=== PATIENT | male | born 1965 | race Caucasian/White ===

== ENCOUNTER 2017-11-17 17:24 | Inpatient (IN) | payer BC ==
[2017-11-17 17:43] VITALS: BP 200/108; PULSE 114; RESP 22; TEMP 98; O2SAT 98
--- NOTE | 2017-11-17 18:32 | RADRPT ---
EXAM DATE/TIME: 11/17/2017 18:11 [facility] COMPARISON: No previous studies available for comparison. INDICATIONS : Dizziness. RADIATION DOSE: 39.45 CTDIvol (mGy) MEDICAL HISTORY : None SURGICAL HISTORY : None. ENCOUNTER: Initial ACUITY: 1 day PAIN SCALE: 0/10 LOCATION: cranial TECHNIQUE: Multiple contiguous axial images were obtained of the head. Using automated exposure control and adj ustment of the mA and/or kV according to patient size, radiation dose was kept as low as reasonably a chievable to obtain optimal diagnostic quality images. DICOM format image data is available electro nically for review and comparison. FINDINGS: CEREBRUM: The ventricles are normal for age. There are 2 focal hypodensities in the right mid convexityinvolvi ng the external limb of the right internal capsule and the medial striatum, characteristic of old lac unar infarcts. There is some ex vacuo enlargement of the right margin of the frontal horn. No evide nce of midline shift, mass lesion, hemorrhage or acute infarction. No extra-axial fluid collections are seen. POSTERIOR FOSSA: The cerebellum and brainstem are intact. The 4th ventricle is midline. The cerebellopontine angle i s unremarkable. EXTRACRANIAL: The visualized portion of the orbits is intact. Opacification of several ethmoid air cells, right gr eater than left. There is also opacification of the right and central frontal sinus. SKULL: The calvaria is intact. No evidence of skull fracture. CONCLUSION: 1. No acute findings in the brain. 2. Old lacunar infarcts right external capsule and right striatum. 3. Ethmoid and right frontal sinus disease. Guillermo Donato MD on November 17, 2017 at 18:29 Board Certified Radiologist. This report was verified electronically.
[2017-11-17 18:57] LABS: AUTOMATED NEUTROPHIL # 7.5 TH/MM3 (1.8-7.7); BASOPHIL # 0.1 TH/MM3 (0-0.2); BASOPHIL % 0.5 % (0.0-2.0); EOSINOPHIL # 0.7 TH/MM3 (0-0.4); EOSINOPHIL % 6.2 % (0.0-4.0); HEMOGLOBIN 14.2 GM/DL (13.0-17.0); LYMPH % 20.1 % (9.0-44.0); LYMPHOCYTE # 2.3 TH/MM3 (1.0-4.8); MEAN CELL VOLUME 97.9 FL (80.0-100.0); MEAN CORPUSCULAR HEMOGLOBIN 34.8 PG (27.0-34.0); MEAN CORPUSCULAR HGB CONC 35.5 % (32.0-36.0); MEAN PLATELET VOLUME 6.5 FL (7.0-11.0); MONO % 6.9 % (0.0-8.0); MONOCYTE # 0.8 TH/MM3 (0-0.9); NEUT % 66.3 % (16.0-70.0); PLATELET COUNT 240 TH/MM3 (150-450); RED BLOOD COUNT 4.08 MIL/MM3 (4.50-5.90); RED CELL DISTRIBUTION WIDTH 13.1 % (11.6-17.2); WHITE BLOOD COUNT 11.4 TH/MM3 (4.0-11.0)
[2017-11-17 19:03] VITALS: BP 182/98; PULSE 100; RESP 20; O2SAT 98
[2017-11-17] MEDS ORDERED: ASPI-183 PO (19:05)
[2017-11-17 19:12] LABS: ALBUMIN 4.3 GM/DL (3.4-5.0); AST (GOT) 21 U/L (15-37); BICARBONATE 27.5 MEQ/L (21.0-32.0); BLOOD UREA NITROGEN 14 MG/DL (7-18); CALCIUM 9.1 MG/DL (8.5-10.1); CHLORIDE 104 MEQ/L (98-107); CREATININE 1.52 MG/DL (0.60-1.30); GLOMERULAR FILTRATION RATE 48 ML/MIN (>89); GLUCOSE,RANDOM 85 MG/DL (74-106); MAGNESIUM 2.2 MG/DL (1.5-2.5); SODIUM (NA) 139 MEQ/L (136-145)
[2017-11-17 19:16] LABS: ALKALINE PHOSPHATASE 101 U/L (45-117); ALT (GPT) 34 U/L (12-78); TOTAL BILIRUBIN ADULT 0.4 MG/DL (0.2-1.0); TOTAL PROTEIN 7.5 GM/DL (6.4-8.2); TROPONIN I LESS THAN 0.02 NG/ML (0.02-0.05)
--- NOTE | 2017-11-17 19:18 | PD ---
HPI Chief Complaint: Dizziness Time Seen by Provider: 18:58 Travel History International Travel<30 days: No Contact w/Intl Traveler<30days: No Traveled to known affect area: No History of Present Illness HPI 52-year-old male visits to the ED for evaluation of dizziness. Sudden onset around 3pm. 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 He states that he felt as if he was off balance and had difficulties with ambulation. He went outside where it was cooler and sat down but his symptoms did not resolve. He had a friend drive him to the hospital. Symptoms are persistent on presentation. He denies dizziness, chest pain, palpitations, shortness of breath, unilateral weakness. He endorses history of daily aspirin use for back pain. He sees a doctor once a year. Denies family history of stroke. He is a nonsmoker. PFSH Past Medical History High Cholesterol: Yes Diminished Hearing: No Kidney Stones: Yes (1981) Tetanus Vaccination: Unknown Influenza Vaccination: No Past Surgical History Eye Surgery: Yes (cataracts) Social History Alcohol Use: No Tobacco Use: No Substance Use: No Allergies-Medications (Allergen,Severity, Reaction): Coded Allergies: No Known Allergies (Unverified , 11/17/17) Reported Meds & Prescriptions Reported Meds & Active Scripts Active Reported Aspirin 325 Mg Tab 325 Mg PO Q6H Review of Systems Except as stated in HPI: all other systems reviewed are Neg Physical Exam Narrative GENERAL: Well-nourished, well-developed white male in no acute distress. SKIN: Focused skin assessment warm/dry. HEAD: Normocephalic. EYES: No scleral icterus. No injection or drainage. NECK: Supple, trachea midline. No JVD or lymphadenopathy. CARDIOVASCULAR: Regular rate and rhythm without murmurs, gallops, or rubs. RESPIRATORY: Breath sounds equal bilaterally. No accessory muscle use. GASTROINTESTINAL: Abdomen soft, non-tender, nondistended. Active bowel sounds. MUSCULOSKELETAL: No cyanosis, or edema. NEUROLOGICAL: Awake and alert. The left side of the face appears flaccid when the patient is at rest, he makes a puffing breathing sound out of the left side of his mouth. However, on testing of the cranial facial nerves his smile is symmetric. Cranial nerves II through XII intact. Motor and sensory grossly within normal limits. Five out of 5 muscle strength in all muscle groups. Normal speech. BACK: Nontender without obvious deformity. No CVA tenderness. Data Data Last Documented VS Vital Signs Date Time Temp Pulse Resp B/P (MAP) Pulse Ox O2 Delivery O2 Flow Rate FiO2 11/17/17 19:06 100 20 98 Room Air 11/17/17 19:03 182/98 (126) 11/17/17 17:43 98.0 Orders Orders Electrocardiogram (11/17/17 17:46) Complete Blood Count With Diff (11/17/17 17:46) Comprehensive Metabolic Panel (11/17/17 17:46) Magnesium (Mg) (11/17/17 17:46) Ckmb (Isoenzyme) Profile (11/17/17 17:46) Troponin I (11/17/17 17:46) Ct Brain W/O Iv Contrast(Rout) (11/17/17 17:46) CKMB (11/17/17 18:10) CKMB% (11/17/17 18:10) Electrocardiogram (11/17/17 ) Mra Brain W/O Contrast (Cow) (11/17/17 ) Mra Carotids W Contrast (11/17/17 ) Mri Brain W/O Contrast (11/17/17 ) Clopidogrel (Plavix) (11/17/17 20:30) Orthostatic Blood Pressure (11/17/17 20:37) Admit Order (Ed Use Only) (11/17/17 20:38) Place In Observation (11/17/17 ) Vital Signs (Adult) Q2HX12,Q4H (11/17/17 20:37) Nih Stroke Scale - Nihss .Daily (11/17/17 20:37) Neuro Checks Q2HX12,Q4H (11/17/17 20:37) Notify Dr: Other (11/17/17 20:37) Ot Request For Service (11/17/17 20:37) Pt Request For Service (11/17/17 20:37) Speech Therapy Consult-Eval/Tx (11/17/17 20:37) Case Management Consult (11/17/17 ) Activity Oob Ad Carol Ann (11/17/17 20:37) Nursing Bedside Swallow Assess .ONCE (11/17/17 20:37) Scd Bilateral/Knee High NEIL.QSHIFT (11/17/17 20:37) Diet Npo (11/18/17 Breakfast) Complete Blood Count With Diff (11/18/17 06:00) Hemoglobin (Hgb) A1c (11/17/17 20:37) Basic Metabolic Panel (Bmp) (11/18/17 06:00) Lipid Profile (11/18/17 06:00) Echo 2d Comp With Doppler (11/17/17 ) ^ Hold Medication (11/17/17 20:37) Consult Neurology (11/17/17 ) Sodium Chloride 0.9% Flush (Ns Flush) (11/17/17 21:00) Sodium Chloride 0.9% Flush (Ns Flush) (11/17/17 20:45) Bedside Glucose NEIL.CSUGAR (11/17/17 20:37) ^ Discontinue Insulin Orders (11/17/17 20:37) Insulin Aspart Supplemtl Scale (Novolog (11/17/17 21:00) Dextrose 50% In Gerardo (Vial) Inj (D50w (Vi (11/17/17 20:45) Glucagon Inj (Glucagon Inj) (11/17/17 20:45) Journalism Teacher / Telemetry NEIL.Q8H (11/17/17 20:37) Consult Stroke Navigator (11/17/17 ) Labs Laboratory Tests Test 11/17/17 18:10 White Blood Count 11.4 TH/MM3 Red Blood Count 4.08 MIL/MM3 Hemoglobin 14.2 GM/DL Hematocrit 40.0 % Mean Corpuscular Volume 97.9 FL Mean Corpuscular Hemoglobin 34.8 PG Mean Corpuscular Hemoglobin Concent 35.5 % Red Cell Distribution Width 13.1 % Platelet Count 240 TH/MM3 Mean Platelet Volume 6.5 FL Neutrophils (%) (Auto) 66.3 % Lymphocytes (%) (Auto) 20.1 % Monocytes (%) (Auto) 6.9 % Eosinophils (%) (Auto) 6.2 % Basophils (%) (Auto) 0.5 % Neutrophils # (Auto) 7.5 TH/MM3 Lymphocytes # (Auto) 2.3 TH/MM3 Monocytes # (Auto) 0.8 TH/MM3 Eosinophils # (Auto) 0.7 TH/MM3 Basophils # (Auto) 0.1 TH/MM3 CBC Comment DIFF FINAL Differential Comment Blood Urea Nitrogen 14 MG/DL Creatinine 1.52 MG/DL Random Glucose 85 MG/DL Total Protein 7.5 GM/DL Albumin 4.3 GM/DL Calcium Level 9.1 MG/DL Magnesium Level 2.2 MG/DL Alkaline Phosphatase 101 U/L Aspartate Amino Transf (AST/SGOT) 21 U/L Alanine Aminotransferase (ALT/SGPT) 34 U/L Total Bilirubin 0.4 MG/DL Sodium Level 139 MEQ/L Potassium Level 3.8 MEQ/L Chloride Level 104 MEQ/L Carbon Dioxide Level 27.5 MEQ/L Anion Gap 8 MEQ/L Estimat Glomerular Filtration Rate 48 ML/MIN Total Creatine Kinase 142 U/L Creatine Kinase MB 1.1 NG/ML Troponin I LESS THAN 0.02 NG/ML MDM Medical Decision Making Medical Screen Exam Complete: Yes Emergency Medical Condition: Yes Differential Diagnosis TIA versus CVA versus metabolic derangement versus other Narrative Course 52-year-old male visits to the ED for evaluation of dizziness. Sudden onset around 3pm. 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 He states that he felt as if he was off balance and had difficulties with ambulation. Symptoms are persistent on presentation. He denies headache, CP, palpitations, SOB, unilateral weakness. He endorses history of daily aspirin use for back pain. He sees a doctor once a year. Denies family history of stroke. He is a nonsmoker. Pulse 114, BP 200 /108 on presentation. On recheck pulse 100, BP 182/98. O2 sats 98% on room air on presentation. On exam the patient has downward curving of the left side of the mouth with puffing type breathing at rest. He ate stroke scale 1. No other focal neuro deficits noted. Chest CTA B. Abdomen soft and nontender. No lower extremities edema. EKG: rate 88, sinus rhythm with occasional PVCs. MT interval 156, QRS 104, QTc 381. Normal axis. No acute ST changes. Reviewed by Dr. Kidd. Cardiac enzymes negative 1. CBC: WBC 11.4. Hemoglobin 14.2. CMP: BUN 14, currently 1.52. I spoke with Dr. Ram, on-call neurologist. He recommends placing the patient on 75 mg Plavix and 325 of aspirin daily, obtaining MRA/MRI of the brain and neck, admission with neuro consult. I spoke with the patient who is agreeable with this plan. I spoke to Dr. Goff who agrees to accept the patient to the medicine service. Please see neuro and medicine notes for disposition. Toya Odonnell Nov 17, 2017 19:18
[2017-11-17] MEDS ORDERED: CLOPIDOGREL 75 MG TAB PO ONE (20:30)
[2017-11-17] MEDS ORDERED: GADODIAMIDE PF 287 MG/ML 5 ML VIAL (for RAD MRI) IVCONTRAST ONE (20:40)
[2017-11-17] MEDS ORDERED: GLUCAGON 1 MG/ML VIAL OTHER PRN (20:45)
[2017-11-17] MEDS ORDERED: DEXTROSE 50% IN WATER 50 ML VIAL(D50) IV PUSH PRN (20:45)
[2017-11-17] MEDS ORDERED: SODIUM CHLORIDE 0.9% FLUSH 10 ML FLUSH IV FLUSH PRN (20:45)
[2017-11-17] MEDS: INSULIN ASPART SUPPLEMENTAL SCALE SQ SCH (21:00)
[2017-11-17] MEDS ORDERED: RESP: ALBUTEROL 2.5 MG/IPRATROPIUM 0.5 MG NEB (SCH) NEB ONE (21:00)
[2017-11-17] MEDS ORDERED: RESP: ALBUTEROL 2.5 MG/IPRATROPIUM 0.5 MG NEB (PRN) NEB (21:00)
--- NOTE | 2017-11-17 21:08 | HHI.HP ---
[facility] Physician Gino Christensen DO Admission Diagnosis TIA/CVA Diagnoses: Travel History International Travel<30 Days: No Contact w/Intl Traveler <30 Da: No Traveled to Known Affected Are: No History of Present Illness 52-year-old male with no significant past medical history presents to the emergency department with a chief complaint of dizziness. The patient reports he was at work earlier today when he stood up and immediately became dizzy. He reports the dizziness as a lightheadedness and denies that the room was spinning. He denies any loss of consciousness but states he did feel as though he was going to pass out and was able to catch himself before this occurred. The patient has a left-sided facial droop that he did not notice however is present on exam. The patient denies any chronicity of this droop. His breathing is also labored but the patient states this is his usual way of breathing as he is a mouth breather secondary to childhood asthma. Review of Systems Except as stated in HPI: all other systems reviewed are Neg Past Family Social History Past Medical History History of nephrolithiasis History of asthma in childhood Past Surgical History Bilateral cataract surgery Reported Medications Reported Meds & Active Scripts Active Reported Aspirin 325 Mg Tab 325 Mg PO Q6H Allergies: Coded Allergies: No Known Allergies (Unverified , 11/17/17) Family History Mother with diabetes mellitus Social History Negative for alcohol, tobacco and illicit drugs Physical Exam Vital Signs Vital Signs Date Time Temp Pulse Resp B/P (MAP) Pulse Ox O2 Delivery O2 Flow Rate FiO2 11/17/17 19:06 100 20 98 Room Air 11/17/17 19:03 100 20 182/98 (126) 98 Room Air 11/17/17 17:43 98.0 114 22 200/108 (138) 98 Physical Exam GENERAL: male sitting up in bed SKIN: No rashes, ecchymoses or lesions. Cool and dry. HEAD: Atraumatic. Normocephalic. No temporal or scalp tenderness. EYES: Pupils equal round and reactive. Extraocular motions intact. No scleral icterus. No injection or drainage. ENT: Nose without bleeding, purulent drainage or septal hematoma. Throat without erythema, tonsillar hypertrophy or exudate. Uvula midline. Airway patent. NECK: Trachea midline. No JVD or lymphadenopathy. Supple, nontender, no meningeal signs. CARDIOVASCULAR: Regular rate and rhythm without murmurs, gallops, or rubs. RESPIRATORY: Bilateral expiratory wheezes. Labored breathing through his mouth. GASTROINTESTINAL: Abdomen soft, non-tender, nondistended. No hepato-splenomegaly , or palpable masses. No guarding. MUSCULOSKELETAL: Extremities without clubbing, cyanosis, or edema. No joint tenderness, effusion, or edema noted. No calf tenderness. NEUROLOGICAL: Awake and alert. Left sided facial droop noted at the mouth at rest and with active smiling. Five out of 5 muscle strength in all her meaning muscle groups. Normal speech. Laboratory Laboratory Tests Test 11/17/17 18:10 White Blood Count 11.4 Red Blood Count 4.08 Hemoglobin 14.2 Hematocrit 40.0 Mean Corpuscular Volume 97.9 Mean Corpuscular Hemoglobin 34.8 Mean Corpuscular Hemoglobin Concent 35.5 Red Cell Distribution Width 13.1 Platelet Count 240 Mean Platelet Volume 6.5 Neutrophils (%) (Auto) 66.3 Lymphocytes (%) (Auto) 20.1 Monocytes (%) (Auto) 6.9 Eosinophils (%) (Auto) 6.2 Basophils (%) (Auto) 0.5 Neutrophils # (Auto) 7.5 Lymphocytes # (Auto) 2.3 Monocytes # (Auto) 0.8 Eosinophils # (Auto) 0.7 Basophils # (Auto) 0.1 CBC Comment DIFF FINAL Differential Comment Blood Urea Nitrogen 14 Creatinine 1.52 Random Glucose 85 Total Protein 7.5 Albumin 4.3 Calcium Level 9.1 Magnesium Level 2.2 Alkaline Phosphatase 101 Aspartate Amino Transf (AST/SGOT) 21 Alanine Aminotransferase (ALT/SGPT) 34 Total Bilirubin 0.4 Sodium Level 139 Potassium Level 3.8 Chloride Level 104 Carbon Dioxide Level 27.5 Anion Gap 8 Estimat Glomerular Filtration Rate 48 Total Creatine Kinase 142 Creatine Kinase MB 1.1 Troponin I LESS THAN 0.02 Result Diagram: 11/17/17 1810 11/17/171809 Caprini VTE Risk Assessment Caprini VTE Risk Assessment: No/Low Risk (score <= 1) Caprini Risk Assessment Model Point Value = 1 Point Value = 2 Point Value = 3 Point Value = 5 Age 41-60 Minor surgery BMI > 25 kg/m2 Swollen legs Varicose veins or History of unexplained or recurrent spontaneous Oral contraceptives or hormone replacement Sepsis (< 1 month) Serious lung disease, including pneumonia (< 1 month) Abnormal pulmonary function Acute myocardial infarction Congestive heart failure (< 1 month) History of inflammatory bowel disease Medical patient at bed rest Age 61-74 Arthroscopic surgery Major open surgery (> 45 min) Laparoscopic surgery (> 45 min) Malignancy Confined to bed (> 72 hours) Immobilizing plaster cast Central venous access Age >= 75 History of VTE Family history of VTE Factor V Leiden Prothrombin [id number] Lupus anticoagulant Anticardiolipin antibodies Elevated serum homocysteine Heparin-induced thrombocytopenia Other congenital or acquired thrombophilia Stroke (< 1 month) Elective arthroplasty Hip, pelvis, or leg fracture Acute spinal cord injury (< 1 month) Prophylaxis Regimen Total Risk Factor Score Risk Level Prophylaxis Regimen 0-1 Low Early ambulation 2 Moderate Order ONE of the following: *Sequential Compression Device (SCD) *Heparin 5000 units SQ BID 3-4 Higher Order ONE of the following medications: *Heparin 5000 units SQ TID *Enoxaparin/Lovenox 40 mg SQ daily (WT < 150 kg, CrCl > 30 mL/min) *Enoxaparin/Lovenox 30 mg SQ daily (WT < 150 kg, CrCl > 10-29 mL/min) *Enoxaparin/Lovenox 30 mg SQ BID (WT < 150 kg, CrCl > 30 mL/min) AND/OR *Sequential Compression Device (SCD) 5 or more Highest Order ONE of the following medications: *Heparin 5000 units SQ TID (Preferred with Epidurals) *Enoxaparin/Lovenox 40 mg SQ daily (WT < 150 kg, CrCl > 30 mL/min) *Enoxaparin/Lovenox 30 mg SQ daily (WT < 150 kg, CrCl > 10-29 mL/min) *Enoxaparin/Lovenox 30 mg SQ BID (WT < 150 kg, CrCl > 30 mL/min) AND *Sequential Compression Device (SCD) Assessment and Plan Assessment and Plan Assessment/plan: 1. CVA Head CT negative for acute intracranial process MRI and MRA brain/carotids pending Neurology consulted, appreciate recommendations Aspirin and Plavix per neurology recommendations PT/OT/speech consulted Neuro checks 2. Labored breathing/bilateral wheezing Patient reports history of asthma in childhood Does not have a rescue inhaler and denies any symptoms Chest x-ray pending Duo nebs FEN NPO Electrolytes: monitor and replete prn NS at 70 cc/hr Morenita Goff MD Nov 17, 2017 21:08
[2017-11-17 22:12] VITALS: BP_SYST 168; BP_SYST 174; BP_DIAS 90; BP_DIAS 97; PULSE 89; RESP 20; TEMP 97.8; O2SAT 98
--- NOTE | 2017-11-17 22:15 | RADRPT ---
EXAM DATE/TIME: 11/17/2017 21:51 [facility] COMPARISON: No previous studies available for comparison. INDICATIONS : Short of breath. MEDICAL HISTORY : None. SURGICAL HISTORY : None. ENCOUNTER: Initial ACUITY: 1 day PAIN SCORE: 0/10 LOCATION: Bilateral chest FINDINGS: A single view of the chest demonstrates the lungs to be symmetrically aerated without evidence of mas s, infiltrate or effusion. The cardiomediastinal contours are unremarkable. Osseous structures are intact. CONCLUSION: The lungs are clear. No consolidative infiltrates seen. Guillermo Donato MD on November 17, 2017 at 22:13 Board Certified Radiologist. This report was verified electronically.
--- NOTE | 2017-11-17 22:17 | RADRPT ---
EXAM DATE/TIME: 11/17/2017 21:00 [facility] COMPARISON: MRI BRAIN W/O CONTRAST, November 17, 2017, 21:00. INDICATIONS : Stroke. MEDICAL HISTORY : Renal calculi. SURGICAL HISTORY : None. ENCOUNTER: Initial ACUITY: 1 day PAIN SCORE: 2/10 LOCATION: Bilateral cranial Please note a normal MRA of the brain does not entirely exclude the possibility of a small aneurysm, nor the possibility of distal intracranial vessel disease. TECHNIQUE: 3D time of flight MRA was performed. Source images, multiplanar STS MIP, and 3D volume MIP reconstru ctions were reviewed. FINDINGS: There is excellent visualization of the major intracranial arteries out to the second-order branch ve ssels. There is no evidence for aneurysm, vessel truncation or stenosis, and no evidence for vascula r malformation. No flow seen in the anterior communicating artery. There is flow seen bilaterally i n the PCOM. CONCLUSION: No central vessel truncation. Guillermo Donato MD on November 17, 2017 at 22:13 Board Certified Radiologist. This report was verified electronically.
--- NOTE | 2017-11-17 22:23 | RADRPT ---
EXAM DATE/TIME: 11/17/2017 21:00 [facility] COMPARISON: No previous studies available for comparison. INDICATIONS : CVA. MEDICAL HISTORY : Renal calculi. SURGICAL HISTORY : None. ENCOUNTER: Initial ACUITY: 1 day PAIN SCORE: 2/10 LOCATION: Bilateral cranial TECHNIQUE: Multiplanar, multisequence MRI of the brain was performed without contrast. FINDINGS: CEREBRUM: The ventricles are symmetric in size and mildly prominent. Lacunar infarcts are present in the right striatum measuring 10 mm and 4 mm. There is also a 5 mm lacunar infarct in the right hemisphere adj acent to the corpus callosum. There is diffuse T2 prolongation in the periventricular white matter s uggestive of ischemic change. POSTERIOR FOSSA: The cerebellum is intact. There is a lacunar infarct in the right posterior floridalma. The 4th ventricle is midline. The cerebellopontine angle is unremarkable. The cerebellar tonsils are normal in positi on. DIFFUSION IMAGING: There is a small area of restricted diffusion seen in the posterior limb of the right internal capsul e which measures 1.4 x 0.5 cm. No evidence of blood products. EXTRACRANIAL: There is opacification of the right frontal and right ethmoid sinuses and less severe mucosal thicken ing in the left ethmoid and posterior inferior maxillary sinuses. No air-fluid levels seen. CONCLUSION: 1. Evidence of diffuse ischemic change with T2 prolongation in the white matter, lacunar infarcts in the right striatum, right corpus callosum, and right floridalma. 2. There is a small area of T2 prolongation in the junction of the striatum and posterior limb of the internal capsule suggesting acute infarction in an end vessel distribution. 3. Moderate severity sinus disease. Guillermo Donato MD on November 17, 2017 at 22:15 Board Certified Radiologist. This report was verified electronically.
--- NOTE | 2017-11-17 22:39 | RADRPT ---
EXAM DATE/TIME: 11/17/2017 21:36 [facility] COMPARISON: No previous studies available for comparison. INDICATIONS : CVA CONTRAST: 20 cc Omniscan (gadodiamide) IV MEDICAL HISTORY : Renal calculi. SURGICAL HISTORY : None. ENCOUNTER: Initial ACUITY: 1 day PAIN SCORE: 2/10 LOCATION: Bilateral cranial Percent stenosis is calculated using the diameter of the stenotic region over the diameter of the nor mal distal internal carotid artery. TECHNIQUE: Bolus infused MRA of the extracranial circulation was performed using a neurovascular coil. Post pro cessing was performed including rotating subvolume maximum intensity projections of each carotid ney ry, rotating full volume maximum intensity projections of both carotid arteries, sagittal and coronal sliding thin slab reformations of each carotid artery, and left oblique sliding thin slab reformatio n through the aortic arch to include the origin of the arch branch vessels. FINDINGS: AORTIC ARCH: There is a three vessel origin of the great vessels from the aorta. No evidence of ostial narrowing. RIGHT CAROTID: The common carotid artery is intact. The carotid bulb has a normal configuration without ulceration or narrowing. The internal carotid artery lumen is smooth without stenosis. The external carotid ar taylor is intact. LEFT CAROTID: The common carotid artery is intact. The carotid bulb has a normal configuration without ulceration or narrowing. The internal carotid artery lumen is smooth without stenosis. The external carotid ar taylor is intact. VERTEBRALS: The vertebral arteries have a symmetric diameter. No stenotic lesions are seen. CONCLUSION: Normal MRA of the carotids. Guillermo Donato MD on November 17, 2017 at 22:36 Board Certified Radiologist. This report was verified electronically.
[2017-11-17] MEDS: SODIUM CHLORIDE 0.9% FLUSH 10 ML FLUSH IV FLUSH SCH (22:42)
[2017-11-17] MEDS: SODIUM CHLOR 0.9% 1000 ML INJ 1,000 ML IV SCH (22:42)
[2017-11-18] VITALS (7 sets, daily range): BP systolic 116–188; BP diastolic 74–114; PULSE 83–107; RESP 16–20; TEMP 97.8–98; O2SAT 94–99
[2017-11-18 05:31] LABS: AUTOMATED NEUTROPHIL # 7.8 TH/MM3 (1.8-7.7); BASOPHIL # 0.1 TH/MM3 (0-0.2); BASOPHIL % 0.4 % (0.0-2.0); EOSINOPHIL # 0.7 TH/MM3 (0-0.4); EOSINOPHIL % 6.3 % (0.0-4.0); HEMATOCRIT 36.6 % (39.0-51.0); HEMOGLOBIN 12.9 GM/DL (13.0-17.0); LYMPH % 19.6 % (9.0-44.0); LYMPHOCYTE # 2.3 TH/MM3 (1.0-4.8); MEAN CELL VOLUME 97.3 FL (80.0-100.0); MEAN CORPUSCULAR HEMOGLOBIN 34.4 PG (27.0-34.0); MEAN CORPUSCULAR HGB CONC 35.3 % (32.0-36.0); MEAN PLATELET VOLUME 6.8 FL (7.0-11.0); MONO % 6.5 % (0.0-8.0); MONOCYTE # 0.8 TH/MM3 (0-0.9); NEUT % 67.2 % (16.0-70.0); PLATELET COUNT 192 TH/MM3 (150-450); RED BLOOD COUNT 3.76 MIL/MM3 (4.50-5.90); WHITE BLOOD COUNT 11.6 TH/MM3 (4.0-11.0)
[2017-11-18 05:50] LABS: BICARBONATE 26.1 MEQ/L (21.0-32.0); CALCIUM 8.6 MG/DL (8.5-10.1); CREATININE 1.23 MG/DL (0.60-1.30)
[2017-11-18 05:54] LABS: CHOLESTEROL/ HDL RATIO 4.77 RATIO; HDL CHOLESTEROL 33.3 MG/DL (40.0-60.0)
[2017-11-18] MEDS: SODIUM CHLORIDE 0.9% FLUSH 10 ML FLUSH IV FLUSH SCH ×2 (07:53→22:17)
[2017-11-18] MEDS: ASPIRIN 325 MG TAB PO SCH (07:53)
[2017-11-18] MEDS: INSULIN ASPART SUPPLEMENTAL SCALE SQ SCH ×4 (07:56→21:00)
--- NOTE | 2017-11-18 11:41 | MB ---
cc: Kelli Ingram MD DATE OF CONSULT: 11/18/2017 REASON FOR CONSULTATION: Stroke. HISTORY OF PRESENT ILLNESS: The patient is a 52-year-old man with no significant past medical history who comes in for some dizziness. 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 No spinning. Some left-sided weakness he states that is not new and has been going on for about 3 months in the arm with tingling. PAST MEDICAL HISTORY: Only significant for nephrolithiasis and asthma as a child. PAST SURGICAL HISTORY: Cataracts. MEDICATIONS: He states he takes Becky Back and Body which contains aspirin as needed. ALLERGIES: NONE REPORTED. FAMILY HISTORY: Diabetes. SOCIAL HISTORY: Does not smoke, drink or use drugs. PHYSICAL EXAM: VITAL SIGNS: Temperature is 98, pulse 87, respiratory rate 20, blood pressure 185/114. NECK: Supple. No bruits. HEART: Regular. NEUROLOGIC: He is awake, alert and oriented. He is fluent. His pupils are reactive. He has a left facial droop. Mild dysarthria. Mild left arm weakness 4/5 with a drift and a left leg lag. DTRs are 1+. Sensory he states is normal. Toes withdrawals. Cerebellar slower on the left than on the right, but no dysmetria. Gait is withheld. LAB DATA: Labs are reviewed. His triglyceride is 125, cholesterol 159, LDL 101, HDL 33.3. His GFR is 62. Hemoglobin A1c is still pending. CBC white count 11.6, hemoglobin 12.9, hematocrit 36.6, platelets 192,000. MRA [place] and carotid did not show any stenosis or aneurysm. He does have a small right internal capsule infarct, old lacunes in the right striatum, right corpus callosum and right floridalma. There is also quite a bit of white matter disease noted and some sinus disease. IMPRESSION: Acute stroke in a 52-year-old man with possible new risk factors such as hypertension, hyperlipidemia. RECOMMENDATIONS: Since he is already taking Becky Back and Body, I think we should switch him to Plavix. Get his A1c, continue Lipitor. PT, OT, and speech therapy evaluation. A Holter monitor. Maintain telemetry and depending on findings, further recommendations. Risk factor modification as well. Also, blood pressure control at this time can be established. MD VY Marie , 11:28 AM , 11:40 AM
--- NOTE | 2017-11-18 12:00 | ECHRPT ---
Indication: CVA/TIA CONCLUSIONS The left ventricular systolic function is normal with an estimated ejection fraction in the range of 60-65%. Normal left ventricular size. Wall thickness is normal. No regional wall motion abnormalities are present. Calcification of the right coronary cusp. Mild aortic valve regurgitation. BP: 173 / 96 HR: 88 Rhythm: Sinus MEASUREMENTS (Male / Female) Normal Values Technical Quality:Fair 2D ECHO LV Diastolic Diameter PLAX 5.2 cm 4.2 - 5.9 / 3.9 - 5.3 cm LV Systolic Diameter PLAX 2.1 cm IVS Diastolic Thickness 1.2 cm 0.6 - 1.0 / 0.6 - 0.9 cm LVPW Diastolic Thickness 1.2 cm 0.6 - 1.0 / 0.6 - 0.9 cm LV Relative Wall Thickness 0.5 LVOT Diameter 1.9 cm LA Systolic Diameter LX 3.5 cm 3.0 - 4.0 / 2.7 - 3.8 cm LV Ejection Fraction MOD 4C 61.7 % LV Cardiac Index MOD 4C 2810.4 cm/minm LV Ejection Fraction 4C AL 62.7 % LV Cardiac Index 4C AL 2936.7 cm/minm M-MODE Aortic Root Diameter MM 3.3 cm AV Cusp Separation MM 1.9 cm DOPPLER AV Peak Velocity 111.0 cm/s AV Peak Gradient 4.9 mmHg AI Peak Velocity 394.5 cm/s AI Peak Gradient 62.3 mmHg AI Pressure Half Time 990.0 ms LVOT Peak Velocity 94.8 cm/s LVOT Peak Gradient 3.6 mmHg AV Area Cont Eq pk 2.4 cm MV Area PHT 4.3 cm Mitral E Point Velocity 69.6 cm/s Mitral A Point Velocity 87.9 cm/s Mitral E to A Ratio 0.8 LV E' Lateral Velocity 4.0 cm/s Mitral E to LV E' Lateral Ratio 17.4 LV E' Septal Velocity 5.1 cm/s Mitral E to LV E' Septal Ratio 13.7 PV Peak Velocity 85.5 cm/s PV Peak Gradient 2.9 mmHg FINDINGS LEFT VENTRICLE The left ventricular systolic function is normal with an estimated ejection fraction in the range of 60-65%. Normal left ventricular size. Wall thickness is normal. No regional wall motion abnormalities are present. RIGHT VENTRICLE Normal right ventricular size and systolic function. LEFT ATRIUM The left atrial size is normal. RIGHT ATRIUM The right atrial size is normal. ATRIAL SEPTUM Normal atrial septal thickness without atrial level shunting by limited color doppler interrogation. AORTA The aortic root and proximal ascending aorta are normal in size on limited imaging. MITRAL VALVE Structurally normal mitral valve. No mitral valve stenosis or regurgitation. AORTIC VALVE Trileaflet aortic valve. Calcification of the right coronary cusp. Mild aortic valve regurgitation. TRICUSPID VALVE Structurally normal tricuspid valve. No tricuspid valve stenosis or regurgitation. PULMONARY VALVE The pulmonary valve is not well visualized. VESSELS The inferior vena cava is normal in size. PERICARDIUM No pericardial effusion. Marty Rea MD, FACC (Electronically Signed) Final Date:18 November 2017 11:59
--- NOTE | 2017-11-18 13:24 | HHI.PR ---
Subjective Remarks Follow-up CVA. States he has intermittent dizziness when he stands up. Seen with family. Discussed with nursing and neurology Objective Vitals Vital Signs Date Time Temp Pulse Resp B/P (MAP) Pulse Ox O2 Delivery O2 Flow Rate FiO2 11/18/17 08:49 87 20 185/114 (137) 94 11/18/17 08:00 91 11/18/17 05:12 98.0 88 16 173/96 (121) 96 11/17/17 22:12 97.8 89 20 168/90 (116) 98 174/97 (122) 174/97 (122) 11/17/17 21:25 11/17/17 19:06 100 20 98 Room Air 11/17/17 19:03 100 20 182/98 (126) 98 Room Air 11/17/17 17:43 98.0 114 22 200/108 (138) 98 I/O 11/17/17 11/17/17 11/17/17 11/18/17 11/18/17 11/18/17 07:00 15:00 23:00 07:00 15:00 23:00 Intake Total 800 ml Balance 800 ml Intake Oral 300 ml IV Total 500 ml Result Diagram: 11/18/177 11/18/17 044 Imaging Last Impressions Head CT 11/17/17 1746 Signed Impressions: Service Date/Time: Friday, November 17, 2017 18:11 - CONCLUSION: 1. No acute findings in the brain. 2. Old lacunar infarcts right external capsule and right striatum. 3. Ethmoid and right frontal sinus disease. Guillermo Donato MD Neck Magnetic Resonance Angiography 11/17/17 Signed Impressions: Service Date/Time: Friday, November 17, 2017 21:36 - CONCLUSION: Normal MRA of the carotids. Guillermo Donato MD Head Magnetic Resonance Angiography 11/17/17 0000 Signed Impressions: Service Date/Time: Friday, November 17, 2017 21:00 - CONCLUSION: No central vessel truncation. Guillermo Donato MD Chest X-Ray 11/17/17 0000 Signed Impressions: Service Date/Time: Friday, November 17, 2017 21:51 - CONCLUSION: The lungs are clear. No consolidative infiltrates seen. Guillermo Donato MD Brain MRI 11/17/17 0000 Signed Impressions: Service Date/Time: Friday, November 17, 2017 21:00 - CONCLUSION: 1. Evidence of diffuse ischemic change with T2 prolongation in the white matter, lacunar infarcts in the right striatum, right corpus callosum, and right floridalma. 2. There is a small area of T2 prolongation in the junction of the striatum and posterior limb of the internal capsule suggesting acute infarction in an end vessel distribution. 3. Moderate severity sinus disease. Guillermo Donato MD Objective Remarks GENERAL: Well-developed and well-nourished in no distress SKIN: No rashes, ecchymoses or lesions. Cool and dry. CARDIOVASCULAR: Regular rate and rhythm without murmurs, gallops, or rubs. RESPIRATORY: Clear lungs equal in expansion GASTROINTESTINAL: Abdomen soft, non-tender, nondistended. No hepato-splenomegaly , or palpable masses. No guarding. MUSCULOSKELETAL: Extremities without clubbing, cyanosis, or edema. No joint tenderness, effusion, or edema noted. No calf tenderness. NEUROLOGICAL: Awake and alert. Left sided facial droop noted at the mouth at rest and with active smiling. Left lower extremity slightly weaker. Normal speech. Procedures None A/P Problem List: (1) CVA (cerebral vascular accident) ICD Code: I63.9 - Cerebral infarction, unspecified Assessment and Plan 1. CVA. Continue permissive hypertension, start Lipitor, agree with Plavix he failed on aspirin, follow-up A1c and monitor on telemetry. PT, OT and ST 2. Asthma exacerbation. Improved. Albuterol as needed chest x-ray unremarkable FEN Mechanical soft Electrolytes: monitor and replete prn NS at 70 cc/hr Discharge Planning Possible discharge in 1-2 days Brian Edmondson MD Nov 18, 2017 13:24
[2017-11-18] MEDS ORDERED: ENALAPRILAT 1.25 MG/ML VIAL IV PUSH PRN (15:45)
[2017-11-18 16:48] LABS: HEMOGLOBIN A1C 5.5 % (4.3-6.0)
[2017-11-18] MEDS: SODIUM CHLOR 0.9% 1000 ML INJ 1,000 ML IV SCH (17:45)
--- NOTE | 2017-11-18 18:33 | EKG ---
Date Performed: 11/18/2017 Time Performed: 02:13:34 PTAGE: 52 years EKG: Sinus rhythm MINIMAL ST DEPRESSION BORDERLINE ECG PREVIOUS TRACING : 11/17/2017 20.07 No significant change from previous tracing noted. DOCTOR: Vitaliy Santos Interpretating Date/Time 11/18/2017 18:32:06
--- NOTE | 2017-11-18 21:27 | EKG ---
Date Performed: 11/17/2017 Time Performed: 20:07:01 PTAGE: 52 years EKG: Sinus rhythm WITH OCCASIONAL VENTRICULAR PREMATURE COMPLEXES MINIMAL VOLTAGE CRITERIA FOR LVH, CONSIDER NORMAL VA RIANT BORDERLINE ECG NO PREVIOUS TRACING DOCTOR: Vitaliy Santos Interpretating Date/Time 11/18/2017 21:27:02
[2017-11-18] MEDS: ATORVASTATIN 20 MG TAB PO SCH (22:18)
[2017-11-19] VITALS (9 sets, daily range): BP systolic 138–185; BP diastolic 67–103; PULSE 79–96; RESP 18–24; TEMP 97.5–98.8; O2SAT 93–96
[2017-11-19] MEDS: INSULIN ASPART SUPPLEMENTAL SCALE SQ SCH ×4 (08:00→20:40)
--- NOTE | 2017-11-19 08:55 | HHI.PR ---
Subjective Remarks Follow-up CVA. He states he is improving but has not been out of bed. No dizziness today discussed with nursing Objective Vitals Vital Signs Date Time Temp Pulse Resp B/P (MAP) Pulse Ox O2 Delivery O2 Flow Rate FiO2 11/19/17 08:17 98.0 87 24 175/90 (118) 93 11/19/17 04:00 84 11/19/17 02:23 98.5 95 18 138/67 (90) 93 11/19/17 00:00 96 11/18/17 20:09 () 11/18/17 19:55 102 11/18/17 16:18 98.0 95 20 188/105 (132) 96 11/18/17 15:00 98 I/O 11/18/17 11/18/17 11/18/17 11/19/17 11/19/17 11/19/17 07:00 15:00 23:00 07:00 15:00 23:00 Intake Total 800 ml 950 ml 1150 ml Balance 800 ml 950 ml 1150 ml Intake Oral 300 ml 500 ml IV Total 500 ml 950 ml 650 ml Result Diagram: 11/18/17 0447 11/18/17 0447 Imaging Last Impressions Head CT 11/17/17 1746 Signed Impressions: Service Date/Time: Friday, November 17, 2017 18:11 - CONCLUSION: 1. No acute findings in the brain. 2. Old lacunar infarcts right external capsule and right striatum. 3. Ethmoid and right frontal sinus disease. Guillermo Donato MD Neck Magnetic Resonance Angiography 11/17/17 0000 Signed Impressions: Service Date/Time: Friday, November 17, 2017 21:36 - CONCLUSION: Normal MRA of the carotids. Guillermo Donato MD Head Magnetic Resonance Angiography 11/17/17 0000 Signed Impressions: Service Date/Time: Friday, November 17, 2017 21:00 - CONCLUSION: No central vessel truncation. Guillermo Donato MD Chest X-Ray 11/17/17 0000 Signed Impressions: Service Date/Time: Friday, November 17, 2017 21:51 - CONCLUSION: The lungs are clear. No consolidative infiltrates seen. Guillermo Donato MD Brain MRI 11/17/17 0000 Signed Impressions: Service Date/Time: Friday, November 17, 2017 21:00 - CONCLUSION: 1. Evidence of diffuse ischemic change with T2 prolongation in the white matter, lacunar infarcts in the right striatum, right corpus callosum, and right floridalma. 2. There is a small area of T2 prolongation in the junction of the striatum and posterior limb of the internal capsule suggesting acute infarction in an end vessel distribution. 3. Moderate severity sinus disease. Guillermo Donato MD Objective Remarks GENERAL: Well-developed and well-nourished in no distress SKIN: No rashes, ecchymoses or lesions. Cool and dry. CARDIOVASCULAR: Regular rate and rhythm without murmurs, gallops, or rubs. RESPIRATORY: Clear lungs equal in expansion GASTROINTESTINAL: Abdomen soft, non-tender, nondistended. No hepato-splenomegaly , or palpable masses. No guarding. MUSCULOSKELETAL: Extremities without clubbing, cyanosis, or edema. No joint tenderness, effusion, or edema noted. No calf tenderness. NEUROLOGICAL: Awake and alert. Left sided facial droop which is improving. Left lower extremity slightly weaker. Normal speech. Procedures None A/P Problem List: (1) CVA (cerebral vascular accident) ICD Code: I63.9 - Cerebral infarction, unspecified Assessment and Plan 1. CVA. Stable. Continue permissive hypertension, Lipitor, Plavix he failed on aspirin and monitor on telemetry which is unremarkable. EKG sinus rhythm. A1c 5.5 per PT, OT and ST 2. Asthma exacerbation. Improved. Albuterol as needed chest x-ray unremarkable FEN Mechanical soft Electrolytes: monitor and replete prn NS at 70 cc/hr Discharge Planning Possible discharge in the morning Brian Edmondson MD Nov 19, 2017 08:55
[2017-11-19] MEDS: CLOPIDOGREL 75 MG TAB PO SCH (09:51)
[2017-11-19] MEDS: ASPIRIN 325 MG TAB PO SCH (09:52)
[2017-11-19] MEDS: SODIUM CHLORIDE 0.9% FLUSH 10 ML FLUSH IV FLUSH SCH ×2 (09:52→20:39)
[2017-11-19] MEDS: SODIUM CHLOR 0.9% 1000 ML INJ 1,000 ML IV SCH ×2 (12:11→15:54)
[2017-11-19] MEDS: ATORVASTATIN 20 MG TAB PO SCH (20:40)
[2017-11-20] VITALS (8 sets, daily range): BP systolic 145–180; BP diastolic 84–97; PULSE 80–99; RESP 17–19; TEMP 97.3–98; O2SAT 95–96
[2017-11-20] MEDS: SODIUM CHLOR 0.9% 1000 ML INJ 1,000 ML IV SCH (05:44)
[2017-11-20] MEDS: INSULIN ASPART SUPPLEMENTAL SCALE SQ SCH ×3 (08:00→17:00)
--- NOTE | 2017-11-20 08:22 | HHI.PR ---
Subjective Remarks in no acute distress. overall doing fine. no new complaints. wants to go home today. Objective Vitals Vital Signs Date Time Temp Pulse Resp B/P (MAP) Pulse Ox O2 Delivery O2 Flow Rate FiO2 11/20/17 04:51 98.0 96 18 158/91 (113) 95 11/20/17 00:48 99 11/20/17 00:15 97.3 80 19 145/89 (107) 96 11/19/17 21:40 98.8 79 18 150/90 (110) 95 11/19/17 20:30 93 11/19/17 17:31 97.6 84 20 171/103 (125) 93 11/19/17 15:36 97.5 93 20 164/88 (113) 94 11/19/17 12:08 98.0 92 20 185/88 (120) 96 I/O 11/19/17 11/19/17 11/19/17 11/20/17 11/20/17 11/20/17 07:00 15:00 23:00 07:00 15:00 23:00 Intake Total 744 ml 1296 ml Output Total 0 ml Balance 744 ml 1296 ml Intake Oral 500 ml IV Total 244 ml 1296 ml Output Urine Total 0 ml # Voids 1 # Bowel Movements 0 Result Diagram: 11/18/177 11/18/17446 Imaging Last Impressions Head CT 11/17/17 1746 Signed Impressions: Service Date/Time: Friday, November 17, 2017 18:11 - CONCLUSION: 1. No acute findings in the brain. 2. Old lacunar infarcts right external capsule and right striatum. 3. Ethmoid and right frontal sinus disease. Guillermo Donato MD Neck Magnetic Resonance Angiography 11/17/17 0000 Signed Impressions: Service Date/Time: Friday, November 17, 2017 21:36 - CONCLUSION: Normal MRA of the carotids. Guillermo Donato MD Head Magnetic Resonance Angiography 11/17/17 0000 Signed Impressions: Service Date/Time: Friday, November 17, 2017 21:00 - CONCLUSION: No central vessel truncation. Guillermo Donato MD Chest X-Ray 11/17/17 0000 Signed Impressions: Service Date/Time: Friday, November 17, 2017 21:51 - CONCLUSION: The lungs are clear. No consolidative infiltrates seen. Guillermo Donato MD Brain MRI 11/17/17 0000 Signed Impressions: Service Date/Time: Friday, November 17, 2017 21:00 - CONCLUSION: 1. Evidence of diffuse ischemic change with T2 prolongation in the white matter, lacunar infarcts in the right striatum, right corpus callosum, and right floridalma. 2. There is a small area of T2 prolongation in the junction of the striatum and posterior limb of the internal capsule suggesting acute infarction in an end vessel distribution. 3. Moderate severity sinus disease. Guillermo Donato MD Objective Remarks GENERAL: This is a well-nourished, well-developed patient, in no apparent distress. CARDIOVASCULAR: Regular rate and regular rhythm without murmurs, gallops, or rubs. RESPIRATORY: Clear to auscultation. Breath sounds equal bilaterally. No wheezes , rales, or rhonchi. GASTROINTESTINAL: Abdomen soft, non-tender, nondistended. Normal, active bowel sounds MUSCULOSKELETAL: Extremities without clubbing, cyanosis, or edema. NEURO: Alert & Oriented x4 to person, place, time, situation. Moves all ext x4 Procedures None Medications and IVs Inpatient Medications Albuterol/ Ipratropium (Duoneb Neb) 1 ampule Q4HR NEB PRN NEB SOB/WHEEZING; Start 11/17/17 at 21:00 Aspirin (Aspirin) 325 mg DAILY PO Last administered on 11/19/17at 09:52; Start at 09:00 Atorvastatin Calcium (Lipitor) 20 mg HS PO Last administered on 11/19/17at 20:40 ; Start 11/18/17 at 21:00 Clopidogrel Bisulfate (Plavix) 75 mg DAILY PO Last administered on 11/19/17at 09: 51; Start 11/19/17 at 09:00 Dextrose (D50w (Vial) Inj) 50 ml UNSCH PRN IV PUSH HYPOGLYCEMIA-SEE COMMENTS; Start 11/17/17 at 20:45 Enalaprilat (Vasotec Inj) 1.25 mg Q4H PRN IV PUSH For SBP > 220 or DBP > 120; Start 11/18/17 at 15:45 Glucagon (Glucagon Inj) 1 mg UNSCH PRN OTHER HYPOGLYCEMIA-SEE COMMENTS; Start 11/17/17 at 20:45 Insulin Aspart (NovoLOG SUPPLEMENTAL SCALE) 1 ACHS SQ ; Start 11/17/17 at 21:00 Sodium Chloride 1,000 ml @ 70 mls/hr [id number] IV Last administered on at 05:44; Start 11/17/17 at 21:00 Sodium Chloride (NS Flush) 2 ml UNSCH PRN IV FLUSH FLUSH AFTER USING IV ACCESS ; Start 11/17/17 at 20:45 A/P Problem List: (1) CVA (cerebral vascular accident) ICD Code: I63.9 - Cerebral infarction, unspecified Assessment and Plan A/P 1. CVA. Stable. continue aspirin, plavix and statin. start on norvasc and monitor the BP. A1c 5.5 - evaluated by PT. holter to be followed up as outpatient. neurology consult appreciated. 2. Asthma exacerbation. Improved. Albuterol as needed chest x-ray unremarkable Discharge Planning dc home this afternoon if BP stable. f/u with pcp and neurology. see med list. d/w the patient and RN. case management for [facility]. David Henson MD Nov 20, 2017 08:22
[2017-11-20] MEDS: ASPIRIN 325 MG TAB PO SCH (08:31)
[2017-11-20] MEDS ORDERED: ASPI81TA23 PO ×2 (08:32→08:35)
[2017-11-20] MEDS ORDERED: PLAV75TA29 PO (08:32)
[2017-11-20] MEDS: SODIUM CHLORIDE 0.9% FLUSH 10 ML FLUSH IV FLUSH SCH (08:32)
[2017-11-20] MEDS ORDERED: ATOR20TA15 PO (08:32)
[2017-11-20] MEDS: CLOPIDOGREL 75 MG TAB PO SCH (08:32)
[2017-11-20] MEDS ORDERED: AMLO5 PO (08:32)
--- NOTE | 2017-11-20 08:36 | HHI.DS ---
Discharge Summary Admission Date Nov 18, 2017 at 07:26 Discharge Date: Nov 20, 2017 Admitting Diagnosis TIA/CVA (1) CVA (cerebral vascular accident) ICD Code: I63.9 - Cerebral infarction, unspecified Diagnosis: Principal Procedures None Brief History - From Admission 52-year-old male with no significant past medical history presents to the emergency department with a chief complaint of dizziness. The patient reports he was at work earlier today when he stood up and immediately became dizzy. He reports the dizziness as a lightheadedness and denies that the room was spinning. He denies any loss of consciousness but states he did feel as though he was going to pass out and was able to catch himself before this occurred. The patient has a left-sided facial droop that he did not notice however is present on exam. The patient denies any chronicity of this droop. His breathing is also labored but the patient states this is his usual way of breathing as he is a mouth breather secondary to childhood asthma. CBC/BMP: 11/18/17 0447 11/18/17 0447 Significant Findings Laboratory Tests Test 11/17/17 18:10 11/18/17 04:47 White Blood Count 11.4 TH/MM3 (4.0-11.0) 11.6 TH/MM3 (4.0-11.0) Red Blood Count 4.08 MIL/MM3 (4.50-5.90) 3.76 MIL/MM3 (4.50-5.90) Mean Corpuscular Hemoglobin 34.8 PG (27.0-34.0) 34.4 PG (27.0-34.0) Mean Platelet Volume 6.5 FL (7.0-11.0) 6.8 FL (7.0-11.0) Eosinophils (%) (Auto) 6.2 % (0.0-4.0) 6.3 % (0.0-4.0) Eosinophils # (Auto) 0.7 TH/MM3 (0-0.4) 0.7 TH/MM3 (0-0.4) Creatinine 1.52 MG/DL (0.60-1.30) Estimat Glomerular Filtration Rate 48 ML/MIN (>89) 62 ML/MIN (>89) Troponin I LESS THAN 0.02 NG/ML Hemoglobin 12.9 GM/DL (13.0-17.0) Hematocrit 36.6 % (39.0-51.0) Neutrophils # (Auto) 7.8 TH/MM3 (1.8-7.7) LDL Cholesterol 101 MG/DL (0-99) HDL Cholesterol 33.3 MG/DL (40.0-60.0) Imaging Last Impressions Head CT 11/17/176 Signed Impressions: Service Date/Time: Friday, November 17, 2017 18:11 - CONCLUSION: 1. No acute findings in the brain. 2. Old lacunar infarcts right external capsule and right striatum. 3. Ethmoid and right frontal sinus disease. Guillermo Donato MD Neck Magnetic Resonance Angiography 11/17/17 0000 Signed Impressions: Service Date/Time: Friday, November 17, 2017 21:36 - CONCLUSION: Normal MRA of the carotids. Guillermo Donato MD Head Magnetic Resonance Angiography 11/17/17 0000 Signed Impressions: Service Date/Time: Friday, November 17, 2017 21:00 - CONCLUSION: No central vessel truncation. Guillermo Donato MD Chest X-Ray 11/17/17 0000 Signed Impressions: Service Date/Time: Friday, November 17, 2017 21:51 - CONCLUSION: The lungs are clear. No consolidative infiltrates seen. Guillermo Donato MD Brain MRI 11/17/17 0000 Signed Impressions: Service Date/Time: Friday, November 17, 2017 21:00 - CONCLUSION: 1. Evidence of diffuse ischemic change with T2 prolongation in the white matter, lacunar infarcts in the right striatum, right corpus callosum, and right floridalma. 2. There is a small area of T2 prolongation in the junction of the striatum and posterior limb of the internal capsule suggesting acute infarction in an end vessel distribution. 3. Moderate severity sinus disease. Guillermo Donato MD PE at Discharge GENERAL: This is a well-nourished, well-developed patient, in no apparent distress. CARDIOVASCULAR: Regular rate and regular rhythm without murmurs, gallops, or rubs. RESPIRATORY: Clear to auscultation. Breath sounds equal bilaterally. No wheezes , rales, or rhonchi. GASTROINTESTINAL: Abdomen soft, non-tender, nondistended. Normal, active bowel sounds MUSCULOSKELETAL: Extremities without clubbing, cyanosis, or edema. NEURO: Alert & Oriented x4 to person, place, time, situation. Moves all ext x4 Hospital Course 1. CVA. Stable. continue aspirin, plavix and statin. start on norvasc and monitor the BP. A1c 5.5 - evaluated by PT. holter to be followed up as outpatient. neurology consult appreciated. 2. Asthma exacerbation. Improved. Albuterol as needed chest x-ray unremarkable Pt Condition on Discharge: Fair Discharge Disposition: Disch w/ Home Health Serv Discharge Time: <= 30 minutes Discharge Instructions DIET: Follow Instructions for: Heart Healthy Diet, Soft Diet Activities you can perform: Regular-No Restrictions Activities to Avoid: Driving Other Activity Instructions: no driving till seen by pcp or neurology. David Henson MD Nov 20, 2017 08:36
[2017-11-20] MEDS ORDERED: amLODIPine BESYLATE 5 MG TAB PO SCH (09:00)
--- NOTE | 2017-11-20 16:32 | HHI.FF ---
Face to Face Verification Diagnosis: (1) CVA (cerebral vascular accident) Physical Therapy Order: Evaluate and Treat Occupational Therapy Order: Evaluate and Treat Speech Therapy Order: To Improve: Swallowing Home Health Nursing Order: Medical education Signs/symptoms of disease process Medication education-adverse effect Nursing assessment with vital signs I have seen patient Zaid Mcfadden on 11/20/17. My clinical findings support the need for the requested home health care services because: Ltd mobility - disease progression I certify that my clinical findings support that this patient is homebound because: Unsteady gait/balance David Henson MD Nov 20, 2017 16:32
--- NOTE | 2017-11-20 22:54 | HM ---
Date Performed: 11/18/2017 Time Performed: 18:24:00 HOOKUP DATE: 11/18/17 06:24:00 PM Karoline ANALYSIS START TIME: 11/18/2017 6:29:00 PM ANALYSIS END TIME: 11/19/2017 6:04:00 PM PATIENT AGE: 52 PATIENT HEIGHT PATIENT WEIGHT: 220 DRUG LIST: room # G-[id number] transfered to [facility] PATIENT DIAGNOSIS: TIA/CVA TEST NARRATIVE: The patient's average heart rate was 94 BPM. Heart rates greater than 120 B PM were noted 2% of the time. No episodes of bradycardia were noted. No pauses exceeding 2.0 sec onds were noted. 170 ventricular ectopics, which represented < 1% of the total beat count, were n oted. The highest ventricular ectopic frequency occurred from 03:00 AM to 04:00 AM Fri. During this time 23 VE(s) occurred. Ventricular ectopics were observed as 170 isolated beat(s) only. No couple ts or runs were noted. 5 supraventricular ectopics, which represented < 1% of the total beat coun t, were noted. The highest supraventricular ectopic frequency occurred from 04:00 AM to 05:00 AM Fri . During this time 1 SVE(s) occurred. No episodes of ST depression (defined as -1.0 mm or more) were noted in channel 1. No episodes of ST depression (defined as -1.0 mm or more) were noted in ryne nnel 2. No episodes of ST depression (defined as -1.0 mm or more) were noted in channel 3. NO DIARY GIVEN TO PATIENT TEST INTERPRETATION: 1) Underlying Sinus rhythm 2) Rare PAC/PVC 3) No arrhythmias noted 4) No pauses 5) No diary given to the patient Signed by : Nakul Bassett
== END 2017-11-20 17:43 | disposition home health service (06) | DRG 65 ==
LOC: NEPE 17:24 → NEDA 20:39 → NEPGCP 22:00 → OBSVTOIN 11-18 07:26 → N05A 11-19 17:15
PROVIDERS: ADMIT Internal Medicine; ATTEND Internal Medicine
DX: I63.9 Cerebral infarction, unspecified (principal); J45.901 Unspecified asthma with (acute) exacerbation; I10 Essential (primary) hypertension; Z79.82 Long term (current) use of aspirin; R29.810 Facial weakness; E78.00 Pure hypercholesterolemia, unspecified
CPT/HCPCS: 70450; 70544; 70548; 70551; 71045; 80048; 80053; 80061; 82550; 82552; 82948; 83036; 83735; 84484; 85025; 93005; 93225; 93226; 93306; 94664; 96360; A9579; G0378; G8987-GP; G8988-GP; J7030